=== PATIENT | female | born 1980 | race Two or more races ===

== ENCOUNTER 2022-01-09 17:24 | Inpatient (IN) | payer MEDICAID ==
[~2022-01-09] VITALS: Ht 152.4 cm; Wt 67.7 kg
[2022-01-09 23:07] LABS: Urine Bacteria FEW /hpf (None Seen); Urine Blood 1+ /uL (Negative); Urine Specific Gravity 1.001 (1.001-1.035); Urine WBC 17 /hpf (0 - 5)
[2022-01-09 23:25] LABS: Basophils # (auto) 0.1 10 ^3/uL (0-0.2); Eosinophils # (auto) 0 10 ^3/uL (0-0.8); Eosinophils % (auto) 0.2 % (0.0-7.0); Monocytes # (auto) 1.8 10 ^3/uL (0-1.3); Nucleated Red Blood Cells % 0.1 %
[2022-01-09 23:26] LABS: Basophils % (auto) 0.8 % (0.0-2.0); Hematocrit 18.4 % (36.0-46.0); Lymphocytes # (auto) 1.1 10 ^3/uL (0.4-5.4); Lymphocytes % (auto) 9.1 % (10.0-50.0); Mean Corpuscular Hemoglobin 16.6 pg (28.0-32.0); Mean Corpuscular Hgb Conc. 28.2 g/dL (32.0-36.0); Monocytes % (auto) 14.3 % (0.0-12.0); Neutrophils # (auto) 9.5 10 ^3/uL (1.6-8.6); Neutrophils % (auto) 75.6 % (37.0-80.0); Red Blood Cells 3.12 10^6/uL (4.0-5.20); Red Cell Distribution Width 18.5 % (11.8-14.3); White Blood Cell 12.6 10^3/uL (4.4-10.8)
[2022-01-09] MEDS ORDERED: SODIUM CHLORIDE 0.9% 1,000 ML IV ONE (23:30)
[2022-01-09] MEDS ORDERED: ACETAMINOPHEN 325 MG TAB PO ONE (23:30)
[2022-01-09 23:38] LABS: Hemoglobin 5.2 g/dL (12.2-16.2)
[2022-01-09 23:45] LABS: Albumin 2.9 g/dL (3.4-5.0); BUN/Creatinine Ratio 7.4; Calcium 8.3 mg/dL (8.5-10.1); Potassium 3.7 mmol/L (3.5-5.1)
[2022-01-09 23:48] LABS: Bilirubin, Total 0.6 mg/dL (0.2-1.0); Total Protein 6.8 g/dL (6.4-8.2)
[2022-01-10] VITALS (10 sets, daily range): BP systolic 96–118; BP diastolic 52–74
[2022-01-10] MEDS ORDERED: cefTRIAXone SOD 1,000 MG VL IM ONE
[2022-01-10] MEDS ORDERED: TEMAZEPAM 15 MG CAP PO PRN (05:15)
[2022-01-10] MEDS ORDERED: ONDANSETRON HCL 4 MG/2 ML VIAL IV PRN (05:15)
[2022-01-10 06:51] LABS: % Iron Saturation 5.2 % (15-50)
[2022-01-10 07:12] LABS: INR 1.03 (0.9-1.15); Partial Thromboplastin Time 24.7 sec (24.6-33.4)
[2022-01-10] MEDS: LEVOTHYROXINE SODIUM 100 MCG TAB PO SCH (07:54)
[2022-01-10] MEDS: ACETAMINOPHEN 325 MG TAB PO PRN ×2 (07:54→17:00)
[2022-01-10] MEDS: cefTRIAXone 1GM/50ML D5W 50 ML IV SCH (09:17)
[2022-01-10] MEDS: PANTOPRAZOLE 40 MG TAB PO SCH (09:50)
[2022-01-10 12:22] LABS: Basophils # (auto) 0.1 10 ^3/uL (0-0.2); Mean Corpuscular Volume 67.4 fL (80.0-100.0)
[2022-01-10 12:25] LABS: Basophils % (auto) 0.9 % (0.0-2.0); Eosinophils # (auto) 0.2 10 ^3/uL (0-0.8); Eosinophils % (auto) 1.2 % (0.0-7.0); Hematocrit 25.7 % (36.0-46.0); Hemoglobin 7.7 g/dL (12.2-16.2); Lymphocytes # (auto) 0.8 10 ^3/uL (0.4-5.4); Lymphocytes % (auto) 5.7 % (10.0-50.0); Mean Corpuscular Hemoglobin 20.3 pg (28.0-32.0); Mean Corpuscular Hgb Conc. 30.1 g/dL (32.0-36.0); Monocytes # (auto) 1.6 10 ^3/uL (0-1.3); Monocytes % (auto) 11.9 % (0.0-12.0); Neutrophils # (auto) 10.7 10 ^3/uL (1.6-8.6); Neutrophils % (auto) 80.3 % (37.0-80.0); Nucleated Red Blood Cells % 0.1 %; Red Blood Cells 3.81 10^6/uL (4.0-5.20); Red Cell Distribution Width 28.4 % (11.8-14.3); White Blood Cell 13.3 10^3/uL (4.4-10.8)
[2022-01-10] MEDS: FERROUS SULFATE 325mg EC TAB PO SCH (14:07)
[2022-01-11] MEDS: ACETAMINOPHEN 325 MG TAB PO PRN ×2 (02:17→19:59)
[2022-01-11 05:00] VITALS: BP 103/58
[2022-01-11] MEDS: LEVOTHYROXINE SODIUM 100 MCG TAB PO SCH (06:55)
[2022-01-11 07:17] LABS: Hemoglobin 7.7 g/dL (12.2-16.2)
[2022-01-11 07:21] LABS: Hematocrit 25.1 % (36.0-46.0); Mean Corpuscular Hemoglobin 20.8 pg (28.0-32.0); Mean Corpuscular Hgb Conc. 30.7 g/dL (32.0-36.0); Mean Corpuscular Volume 67.7 fL (80.0-100.0); Red Blood Cells 3.71 10^6/uL (4.0-5.20); White Blood Cell 14.1 10^3/uL (4.4-10.8)
[2022-01-11 07:34] LABS: Red Cell Distribution Width 27.9 % (11.8-14.3)
[2022-01-11 07:35] LABS: Band Neutrophils % (manual) 0; Basophils % (manual) 0 (0.0-2.0); Blast Cells 0; Metamyelocytes % 0; Promyelocytes % 0
[2022-01-11 08:26] LABS: Eosinophils % (manual) 1 (0-7); Lymphocytes % (manual) 11 (10.0-50.0); Monocytes % (manual) 6 (0-12); Myelocytes % 1; Reactive Lymphocytes 1
[2022-01-11 08:36] LABS: Potassium 4.2 mmol/L (3.5-5.1)
[2022-01-11 08:47] LABS: Albumin 2.8 g/dL (3.4-5.0); BUN/Creatinine Ratio 10.8; Bilirubin, Total 0.6 mg/dL (0.2-1.0); Calcium 8.3 mg/dL (8.5-10.1); Total Protein 6.2 g/dL (6.4-8.2)
[2022-01-11] MEDS: cefTRIAXone 1GM/50ML D5W 50 ML IV SCH (08:49)
[2022-01-11] MEDS: FERROUS SULFATE 325mg EC TAB PO SCH ×2 (08:49→09:08)
[2022-01-11] MEDS: PANTOPRAZOLE 40 MG TAB PO SCH ×2 (08:50→09:08)
[2022-01-11] MEDS ORDERED: ERGOCALCIFEROL 50,000 UNIT(1.25MG) CAP PO SCH (10:30)
[2022-01-11 10:55] LABS: Free T4 (Free Thyroxine) 1.07 ng/dL (0.89-1.76)
[2022-01-11 10:56] LABS: Folate (Folic Acid) > 24.00 ng/mL (5.38-24)
[2022-01-11 13:00] VITALS: BP 130/73
[2022-01-11 17:00] VITALS: BP 129/70
[2022-01-11 22:00] VITALS: BP 118/69
[2022-01-12 05:00] VITALS: BP 121/82
[2022-01-12 05:49] LABS: Basophils # (auto) 0.1 10 ^3/uL (0-0.2); Eosinophils # (auto) 0.3 10 ^3/uL (0-0.8); Eosinophils % (auto) 3.9 % (0.0-7.0); Hemoglobin 8.2 g/dL (12.2-16.2); Lymphocytes # (auto) 1.4 10 ^3/uL (0.4-5.4); Neutrophils # (auto) 6.1 10 ^3/uL (1.6-8.6); Nucleated Red Blood Cells % 0.1 %
[2022-01-12 05:52] LABS: Basophils % (auto) 1.1 % (0.0-2.0); Lymphocytes % (auto) 16.3 % (10.0-50.0); Mean Corpuscular Hemoglobin 20.2 pg (28.0-32.0); Mean Corpuscular Hgb Conc. 30.3 g/dL (32.0-36.0); Mean Corpuscular Volume 66.7 fL (80.0-100.0); Monocytes # (auto) 0.8 10 ^3/uL (0-1.3); Monocytes % (auto) 9.4 % (0.0-12.0); Neutrophils % (auto) 69.3 % (37.0-80.0); Red Blood Cells 4.04 10^6/uL (4.0-5.20); White Blood Cell 8.8 10^3/uL (4.4-10.8)
[2022-01-12 05:53] LABS: Albumin 2.7 g/dL (3.4-5.0); Calcium 8.4 mg/dL (8.5-10.1); Potassium 4.4 mmol/L (3.5-5.1)
[2022-01-12 05:56] LABS: BUN/Creatinine Ratio 13.5; Bilirubin, Total 0.4 mg/dL (0.2-1.0); Total Protein 6.4 g/dL (6.4-8.2)
[2022-01-12 06:07] LABS: Red Cell Distribution Width 28.9 % (11.8-14.3)
[2022-01-12] MEDS ORDERED: LEVOTHYROXINE SODIUM 100 MCG TAB PO SCH (07:00)
[2022-01-12] MEDS ORDERED: CYANOCOBALAMIN (B-12) 1000 MCG/1 ML VIAL IM ONE (07:30)
[2022-01-12] MEDS: FERROUS SULFATE 325mg EC TAB PO SCH (08:35)
[2022-01-12] MEDS: PANTOPRAZOLE 40 MG TAB PO SCH (08:35)
[2022-01-12] MEDS: cefTRIAXone 1GM/50ML D5W 50 ML IV SCH (08:35)
[2022-01-12 09:00] VITALS: BP 119/68
[2022-01-12] MEDS ORDERED: LEV100T PO (11:52)
[2022-01-12] MEDS ORDERED: ERGO1CAP23 PO (11:52)
[2022-01-12] MEDS ORDERED: AZIT500T PO (11:52)
[2022-01-12] MEDS ORDERED: FER325T PO (11:52)
[2022-01-12 13:00] VITALS: BP 117/70
== END 2022-01-12 14:28 | disposition home or self-care (01) | DRG 137 ==
LOC: ER 17:24 → OVERFLOW 01-10 05:18 → EAST 01-10 12:52
PROVIDERS: ADMIT Nurse Practitioner; ATTEND Internal Medicine
PROC: 30233N1 Transfusion of Nonautologous Red Blood Cells into Peripheral Vein, Percutaneous Approach (ICD-10-PCS; principal; 2022-01-10)
DX: U07.1 COVID-19 (principal); E43 Unspecified severe protein-calorie malnutrition; E03.9 Hypothyroidism, unspecified; R74.01 Elevation of levels of liver transaminase levels; D25.9 Leiomyoma of uterus, unspecified; N92.0 Excessive and frequent menstruation with regular cycle; E55.9 Vitamin D deficiency, unspecified; D50.9 Iron deficiency anemia, unspecified; Z20.822 Contact with and (suspected) exposure to COVID-19; Z68.29 Body mass index [BMI] 29.0-29.9, adult; Z98.891 History of uterine scar from previous surgery
CPT/HCPCS: 36415; 71045; 76705; 76830; 76856; 80053; 80061; 81001; 81025; 82306; 82607; 82670; 82746; 83001; 83036; 83540; 83550; 83735; 84439; 84443; 85007; 85025; 85027; 85610; 85730; 86304; 86850; 86900; 86901; 86920; 87086; 87088; 87186; 96361; 96365; 96372; G0378; J0696